=== PATIENT | male | born 1975 | race Caucasian/White ===

== ENCOUNTER 2017-11-12 20:35 | Emergency (ER) | payer OTHER ==
[~2017-11-12] VITALS: Ht 182.9 cm; Wt 81.6 kg
[~2017-11-12 20:35] MED LIST: CETI10TA22 PO; FAMO-63 PO; FLUT1DIS3 IH; PRED50TA PO; VENTOLIN HFA18 GM INH
[2017-11-12 21:30] VITALS: BP 133/71
[2017-11-12] MEDS: ALBUTEROL SULFATE 2.5 MG/3 ML NEBU. NEB ONE (22:02)
--- NOTE | 2017-11-12 22:22 | PHYS DOC ---
Past Medical History Past Medical History: Asthma Past Surgical History: No Surgical History Alcohol Use: Occasionally Drug Use: None Adult General Chief Complaint Chief Complaint: ASTHMA HPI HPI Patient is a 42 year old little who presents to the emergency room with complaints of worsening asthma today. Patient states that his asthma has been flaring up daily for the last 2 weeks. He has been using his pro-air inhaler several times each day. Patient denies any fever, chest pain, nausea, vomiting, diarrhea, ear pain, or sore throat. He reports frequent throat clearing with postnasal drainage and a nonproductive cough. Review of Systems Review of Systems Constitutional: Denies fever or chills [] HENT: Denies nasal congestion or sore throat [] Respiratory: Reports dry cough, wheezing, or shortness of breath [] Cardiovascular: Denies chest pain GI: Denies abdominal pain, nausea, vomiting, or diarrhea [] Integument: Denies rash or skin lesions [] Neurologic: Denies headache, focal weakness or sensory changes [] All other systems were reviewed and found to be within normal limits, except as documented in this note. Current Medications Current Medications Current Medications Medications (Trade) Dose Ordered Sig/Brayden Start Time Stop Time Status Last Admin Dose Admin Albuterol Sulfate (Ventolin Neb Soln) 2.5 mg 1X ONCE 11/12/17 22:00 11/12/17 22:01 DC 11/12/17 22:02 2.5 MG Allergies Allergies Allergies Coded Allergies Type Severity Reaction Last Updated Verified No Known Drug Allergies 09/25/15 No Physical Exam Physical Exam Constitutional: Well developed, well nourished, no acute distress, non-toxic appearance. [] HENT: Normocephalic, atraumatic, bilateral external ears normal, oropharynx moist, no oral exudates, cobblestone appearance posterior pharynx, nose normal. [] Eyes: PERRLA, conjunctiva normal, no discharge. [] Neck: Normal range of motion, no tenderness, supple, no stridor. [] Cardiovascular:Heart rate regular rhythm, no murmur [] Lungs & Thorax: Bilateral breath sounds clear to auscultation, diminished posterior [] Skin: Warm, dry, no erythema, no rash. [] Extremities: No cyanosis, no clubbing, no edema. [] Neurologic: Alert and oriented X 3, normal motor function, normal sensory function, no focal deficits noted. [] Psychologic: Affect normal, judgement normal, mood normal. [] Current Patient Data Vital Signs Vital Signs Date Time Temp Pulse Resp B/P (MAP) Pulse Ox O2 Delivery O2 Flow Rate FiO2 11/12/17 21:30 97.7 64 16 133/71 (91) 96 Room Air 97.7 EKG EKG [] Radiology/Procedures Radiology/Procedures [] Course & Med Decision Making Course & Med Decision Making Pertinent Labs and Imaging studies reviewed. (See chart for details) Asthma exacerbation, pt received one breathing treatment in the department. Increased posterior lung sounds after treatment. Pt also received MDI and spacer use instruction by RT. Patient verbalized an understanding of home care, medications, follow-up, and return to ED instructions and was in agreement with the plan of care. [] Dragon Disclaimer Dragon Disclaimer This electronic medical record was generated, in whole or in part, using a voice recognition dictation system. Departure Departure Impression: Primary Impression: Asthma exacerbation Disposition: HOME, SELF-CARE Condition: STABLE Referrals: UNKNOWN PCP NAME (PCP) Patient Instructions: Asthma, Adult, [id number] Additional Instructions: USE YOUR INHALER EVERY 4-6 HOURS NEEDED. Avoid triggers such as smoke, fragrance, dust, and pollen. Recommend [id number] antihistamine such as Zyrtec daily. Follow-up with your primary care doctor asked week. Return to the emergency room if symptoms worsen. Problem Qualifiers Primary Impression: Asthma exacerbation Asthma severity: mild Asthma persistence: unspecified Qualified Codes: J45.901 - Unspecified asthma with (acute) exacerbation KHADRA VARGAS [employer] Nov 12, 2017 22:22
== END 2017-11-12 22:30 | disposition home or self-care (01) ==
LOC: ER 20:35
DX: J45.901 Unspecified asthma with (acute) exacerbation (principal)
CPT/HCPCS: 94640; 94664; 99283; J7613; 94644